=== PATIENT | male | born 1970 | race African-American/Black ===

== ENCOUNTER 2017-11-12 11:41 | Emergency (ER) | payer OTHER ==
[~2017-11-12] VITALS: Ht 172.7 cm; Wt 90.7 kg
[~2017-11-12 11:41] MED LIST: BACTRIM DS TAB1 EACH PO; NOHOMEMEDICATIONS; NORCO 5-325 TA1 EACH PO
[2017-11-12] MEDS ORDERED: NORVASC5 MG PO (11:51)
[2017-11-12] MEDS ORDERED: PATANOL5 ML OPHTHALMIC (12:12)
== END 2017-11-12 12:19 | disposition home or self-care (01) ==
LOC: ER 11:41
DX: H10.11 Acute atopic conjunctivitis, right eye (principal); I10 Essential (primary) hypertension; Z87.891 Personal history of nicotine dependence

== ENCOUNTER 2019-05-28 19:18 | Emergency (ER) | payer BC, OTHER ==
[~2019-05-28] VITALS: Ht 172.7 cm; Wt 87.5 kg
[~2019-05-28 19:18] MED LIST changes: +NORVASC5 MG PO; +PATANOL5 ML OPHTHALMIC
[2019-05-28] MEDS ORDERED: NORCO 5-325 TA1 EAC1 PO (20:28)
[2019-05-28 20:55] VITALS: BP 122/78
== END 2019-05-28 21:18 | disposition home or self-care (01) ==
LOC: ER 19:18
DX: K13.79 Other lesions of oral mucosa (principal); K02.9 Dental caries, unspecified; I10 Essential (primary) hypertension; Z79.899 Other long term (current) drug therapy

== ENCOUNTER 2019-08-06 09:14 | Emergency (ER) | payer BC, OTHER ==
[~2019-08-06] VITALS: Ht 172.7 cm; Wt 86.2 kg
[~2019-08-06 09:14] MED LIST changes: +NORCO 5-325 TA1 EAC1 PO
[2019-08-06 11:15] LABS: URINE BILIRUBIN NEGATIVE (Negative); URINE BLOOD NEGATIVE (Negative); URINE CLARITY CLEAR; URINE COLOR YELLOW; URINE GLUCOSE-RANDOM* NEGATIVE (Negative); URINE KETONES NEGATIVE (Negative); URINE LEUKOCYTES-REFLEX NEGATIVE (Negative); URINE NITRITE-REFLEX NEGATIVE (Negative); URINE PROTEIN (DIPSTICK) 1+ (Negative); URINE SPECIFIC GRAVITY >= 1.030 (1.005-1.035); URINE UROBILINOGEN 0.2 E.U./dl (0.2-1.0)
[2019-08-06 11:31] LABS: BACTERIA-REFLEX 1-9 Few /HPF (None Seen); CASTS None Seen /LPF (None Seen); CRYSTALS None Seen /LPF (None Seen); SQUAMOUS None Seen /LPF (0-3); URINE RBC None Seen /HPF (0-2); URINE WBC-REFLEX 0-5 Rare /HPF (0-5)
[2019-08-06 11:58] LABS: CALCIUM 9.2 mg/dL (8.5-10.1); CREATININE 1.2 mg/dL (0.7-1.3); POTASSIUM 4.3 mmol/L (3.5-5.1)
[2019-08-06 12:01] LABS: ABSOLUTE NEUTROPHILS 4.4 thou/uL (1.4-8.2); BASOPHILS 0.7 % (0.0-2.0); EOSINOPHILS 1.6 % (0.0-3.0); HEMATOCRIT 46.4 % (42.0-52.0); HEMOGLOBIN 15.8 gm/dL (14.0-18.0); LYMPHOCYTES 20.9 % (24.0-44.0); MCH 33.6 pg (26.0-34.0); MCHC 34.1 g/dL (28.0-37.0); MCV 98.3 fL (80.0-100.0); MONOCYTES 7.4 % (1.0-8.0); PLATELET COUNT 213 thou/uL (150-400); POLYS 69.4 % (36.0-66.0); RBC 4.72 mil/uL (4.50-6.00); RDW 13.3 % (10.5-14.5); WBC 6.4 thou/uL (4.0-11.0)
[2019-08-06 12:07] LABS: ALBUMIN 4.1 g/dL (3.4-5.0); TOTAL BILIRUBIN 0.5 mg/dL (<0.1-1.0); TOTAL PROTEIN 7.4 g/dL (6.4-8.2)
[2019-08-06] MEDS ORDERED: CYCLOBENZAPRINE5 MG PO (13:04)
[2019-08-06] MEDS ORDERED: MEDROLDOSEPACK PO (13:04)
[2019-08-06] MEDS ORDERED: NORCO 5-325 TA1 EAC1 PO (13:04)
[2019-08-06 13:15] VITALS: BP 141/96
== END 2019-08-06 13:16 | disposition home or self-care (01) ==
LOC: ER 09:14
PROVIDERS: Physician Assistant
DX: M51.26 Other intervertebral disc displacement, lumbar region (principal); I10 Essential (primary) hypertension; Z87.891 Personal history of nicotine dependence

== ENCOUNTER 2019-09-14 08:12 | Emergency (ER) | payer BC, OTHER ==
[~2019-09-14] VITALS: Ht 170.2 cm; Wt 83.9 kg
[~2019-09-14 08:12] MED LIST changes: +CYCLOBENZAPRINE5 MG PO; +MEDROLDOSEPACK PO
[2019-09-14 08:14] VITALS: BP 149/92
[2019-09-14 08:31] LABS: URINE BILIRUBIN NEGATIVE (Negative); URINE BLOOD NEGATIVE (Negative); URINE CLARITY CLEAR; URINE COLOR YELLOW; URINE GLUCOSE-RANDOM* NEGATIVE (Negative); URINE KETONES NEGATIVE (Negative); URINE NITRITE-REFLEX NEGATIVE (Negative); URINE PROTEIN (DIPSTICK) NEGATIVE (Negative); URINE SPECIFIC GRAVITY >= 1.030 (1.005-1.035); URINE UROBILINOGEN 0.2 E.U./dl (0.2-1.0)
[2019-09-14 08:46] LABS: URINE LEUKOCYTES-REFLEX 1+ (Negative)
[2019-09-14 10:31] LABS: CASTS None Seen /LPF (None Seen); MUCUS 0-3 Light strn/LPF (None Seen); SQUAMOUS 0-3 Few /LPF (0-3)
[2019-09-14 10:32] LABS: BACTERIA-REFLEX 1-9 Few /HPF (None Seen); CRYSTALS None Seen /LPF (None Seen); URINE RBC 0-2 Rare /HPF (0-2)
== END 2019-09-14 09:30 | disposition home or self-care (01) ==
LOC: ER 08:12
PROVIDERS: Student in an Organized Health Care Education/Training Program
DX: R36.9 Urethral discharge, unspecified (principal); I10 Essential (primary) hypertension; Z87.891 Personal history of nicotine dependence

== ENCOUNTER 2019-12-29 14:41 | Emergency (ER) | payer OTHER ==
[~2019-12-29] VITALS: Ht 172.7 cm; Wt 88.5 kg
[2019-12-29 15:34] LABS: ABSOLUTE NEUTROPHILS 9.7 thou/uL (1.4-8.2); BASOPHILS 0.7 % (0.0-2.0); EOSINOPHILS 0.1 % (0.0-3.0); HEMATOCRIT 46.8 % (42.0-52.0); HEMOGLOBIN 16.1 gm/dL (14.0-18.0); LYMPHOCYTES 10.9 % (24.0-44.0); MCH 33.9 pg (26.0-34.0); MCHC 34.4 g/dL (28.0-37.0); MCV 98.5 fL (80.0-100.0); MONOCYTES 4.9 % (1.0-8.0); PLATELET COUNT 243 thou/uL (150-400); POLYS 83.4 % (36.0-66.0); RBC 4.75 mil/uL (4.50-6.00); RDW 13.1 % (10.5-14.5); WBC 11.6 thou/uL (4.0-11.0)
[2019-12-29 15:42] LABS: CALCIUM 9.8 mg/dL (8.5-10.1); POTASSIUM 4.3 mmol/L (3.5-5.1)
[2019-12-29 15:48] LABS: ALBUMIN 4.6 g/dL (3.4-5.0); TOTAL BILIRUBIN 0.7 mg/dL (<0.1-1.0); TOTAL PROTEIN 7.9 g/dL (6.4-8.2)
[2019-12-29 16:20] VITALS: BP 141/84
--- NOTE | 2019-12-30 09:58 | EKG ---
[facility] [place] [address] ELECTROCARDIOGRAM REPORT Name: CHRISTINE FUNES Room #: [facility]#: [id number] Admission: 12/29/19 Attend Phys: Discharge: 12/29/19 Date of : 70 Report #: [id number] THIS REPORT FOR: cc: FAM - Family physician unknown FAM - Family physician unknown Raza Cuevas MD ~ THIS REPORT FOR: //name// [facility] ED Test Date: 2019-12-29 Test Time: 15:34:41 Pat Name: CHRISTINE FUNES Department: Room: Gender: M [employer]: : 1970 Requested By: Martha Baer Order Number: [id number] MD: Raza Cuevas Measurements Intervals [place] Rate: 79 P: 61 TN: 199 QRS: 13 QRSD: 84 T: 10 QT: 382 QTc: 438 Interpretive Statements Sinus rhythm Nonspecific ST segment abnormalities Compared to ECG 09/10/2016 01:04:31 No significant changes Electronically Signed On 12-30-2019 9:56:58 CDT by Raza Cuevas [email or web address] <ELECTRONICALLY SIGNED> By: Raza Cuevas MD 12/30/19 [id number] MD HESHAM Rojas
== END 2019-12-29 16:26 | disposition home or self-care (01) ==
LOC: ER 14:41
PROVIDERS: Physician Assistant
DX: I10 Essential (primary) hypertension (principal); R05 Cough; F12.90 Cannabis use, unspecified, uncomplicated; Z87.891 Personal history of nicotine dependence; Z79.899 Other long term (current) drug therapy